=== PATIENT | male | born 1945 | race American Indian/Alaskan Native ===

== ENCOUNTER 2019-12-19 10:47 | Outpatient (CLI) | payer MEDICARE, OTHER ==
[2019-12-19 12:02] LABS: Alanine Aminotransferase 11 units/L (7-56); Albumin 3.8 g/dL (3.9-5); BUN/Creatinine Ratio 18; Blood Urea Nitrogen 14 mg/dL (9-20); Calcium 9.7 mg/dL (8.4-10.2); Hemolysis Index 0
== END 2019-12-19 10:48 | disposition home or self-care (01) ==
LOC: LAB 10:47
PROVIDERS: ATTEND Specialist
DX: R55 Syncope and collapse (principal); I72.9 Aneurysm of unspecified site; Z11.59 Encounter for screening for other viral diseases; Z79.899 Other long term (current) drug therapy
CPT/HCPCS: 36415; 80053; 82607; 83921; 84443; 86592

== ENCOUNTER 2021-03-11 07:39 | Day surgery (SDC) | payer MEDICARE, OTHER ==
[~2021-03-11 07:39] MED LIST: LACTATED RINGERS 1,000 ML IV SCH
[2021-03-11] MEDS ORDERED: HYDROmorphone 1 MG/1 ML INJ IV PRN (09:15)
[2021-03-11] MEDS ORDERED: ONDANSETRON 4 MG/2 ML INJ IV PRN (09:15)
--- NOTE | 2021-03-11 09:16 | Anesthesia Day of Surgery ---
Anesthesia Day of Surgery - Day of Surgery Patient Examined: Yes Patient H&P Reviewed: Yes Patient is NPO: Yes
[2021-03-11] MEDS ORDERED: ceFAZolin/Water 2 GM/20 ML 2 GM/20 ML SYRINGE IV ONE (09:21)
--- NOTE | 2021-03-11 09:28 | Anesthesia Consultation ---
Anesthesia Consult and Med Hx Date of service: 03/11/21 - Airway Anesthetic Teeth Evaluation: Dentures, Partials (Lower; missing teeth), Edentulous (Upper) ROM Head & Neck: Adequate Mental/Hyoid Distance: Adequate Mallampati Class: Class II Intubation Access Assessment: Good - Pre-Operative Health Status ASA Pre-Surgery Classification: ASA3 Proposed Anesthetic Plan: General - Pulmonary Hx Smoking: Yes (FORMER; quit three weeks ago) Hx Sleep Apnea: Yes - Cardiovascular System Hx Hypertension: Yes - Central Nervous System Hx Neuromuscular Disorder: Yes (Early Alzheimers; short-term memory deficit) CVA: Yes (Aneurysm; denies deficit) Hx Psychiatric Problems: No - Gastrointestinal Hx Gastroesophageal Reflux Disease: Yes (Occasional) - Endocrine Hx Renal Disease: No Hx Liver Disease: No 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
[2021-03-11] MEDS ORDERED: LACTATED RINGERS 1,000 ML IV SCH (09:30)
[2021-03-11] MEDS ORDERED: propofoL 200 MG/20 ML VIAL IV ONE (09:46)
[2021-03-11] MEDS ORDERED: HYDROmorphone 1 MG/1 ML INJ ONE (09:46)
[2021-03-11] MEDS ORDERED: LIDOCAINE MPF (2%) 20 MG/1 ML VIAL 5 ML ONE (09:46)
[2021-03-11] MEDS ORDERED: ceFAZolin/STERILE WATER 2 GM/20 ML SYRINGE IV NR (10:00)
[2021-03-11 10:04] LABS: Hematocrit 32.3 % (35.5-45.6); Mean Corpuscular HGB Conc 34 % (32-34); Mean Corpuscular Volume 79 fl (84-94); Platelet Count 179 K/mm3 (140-440); Red Blood Count 4.07 M/mm3 (3.65-5.03); Red Cell Distribution Width 16.8 % (13.2-15.2)
[2021-03-11 10:22] LABS: BUN/Creatinine Ratio 27; Blood Urea Nitrogen 24 mg/dL (9-20); Calcium 9.8 mg/dL (8.4-10.2); Hemolysis Index 8
[2021-03-11] MEDS ORDERED: PHENYLEPHRINE/NS 1,000 MCG/10 ML SYRINGE (OR USE) IV ONE (11:15)
[2021-03-11] MEDS ORDERED: SODIUM CHLORIDE 0.9% IRRIG SOLN 2000 ML IR ONE (11:15)
[2021-03-11] MEDS ORDERED: IOHEXOL 240 MG/ML 200 ML IV ONE (11:16)
[2021-03-11] MEDS ORDERED: ONDANSETRON 4 MG/2 ML INJ ONE (11:27)
[2021-03-11] MEDS ORDERED: KETOROLAC 30 MG/1 ML INJ ONE (11:27)
--- NOTE | 2021-03-11 11:39 | Short Stay Summary ---
Short Stay Documentation Date of service: 03/04/21 - History H&P: obtained from office - Allergies and Medications Current Medications: Allergies codeine Allergy (Verified 02/26/21 16:46) Vomiting morphine Allergy (Verified 02/26/21 16:46) Itching Home Medications Medication Instructions Recorded Confirmed Last Taken Type Aspirin [Adult Aspirin] 81 mg PO DAILY 02/26/21 03/11/21 03/07/21 09:00 History Simvastatin 80 mg PO HS 02/26/21 03/11/21 03/10/21 09:00 History hydrALAZINE [Apresoline] 50 mg PO DAILY 02/26/21 03/11/21 03/10/21 09:00 History Active Medications Hydromorphone HCl (Hydromorphone 1 Mg/1 Ml Inj) 0.25 mg IV Q10MIN PRN PRN Reason: Pain, Moderate (4-6) Stop: 03/11/21 20:00 Hydromorphone HCl (Hydromorphone 1 Mg/1 Ml Inj) 0.5 mg IV Q10MIN PRN PRN Reason: Pain , Severe (7-10) Stop: 03/11/21 20:00 Lactated Ringer's (Lactated Ringers) 1,000 mls @ 125 mls/hr IV DIRECT MARINA Ondansetron HCl (Ondansetron 4 Mg/2 Ml Inj) 4 mg IV ONCE PRN PRN Reason: Nausea And Vomiting Stop: 03/11/21 13:00 - Brief post op/procedure progress note Date of procedure: 03/11/21 Pre-op diagnosis: bph Post-op diagnosis: same Procedure: cysto, rpb, TUR bladder neck, greenlight laser of prostate Anesthesia: GETA Surgeon: MATILDA MENDEZ Estimated blood loss: minimal Pathology: list (bladder neck (prostate)) Specimen disposition: to lab Condition: stable - Hospital course Hospital course: ultram, macorbid, post op info on chart - Disposition Condition at discharge: Stable Disposition: - TO HOME OR SELFCARE Short Stay Discharge Plan Follow up with: ROSA ISELA TORRE MD [Primary Care Provider] - 7 Days
[2021-03-11] MEDS: HYDROmorphone 1 MG/1 ML INJ IV PRN ×2 (11:49→12:00)
[2021-03-11 12:38] VITALS: BP 138/78
--- NOTE | 2021-03-11 14:31 | Fluoroscopy Report ---
INTRAOPERATIVE FLUOROSCOPY: BILATERAL RETROGRADE UROGRAPHY INDICATION: BPH. TECHNIQUE: Intraoperative spot images were obtained during the procedure. FINDINGS: No hydronephrosis is seen. No extravasation or ureteral filling defects. Please see procedure note fo r details. Fluoroscopy Time: 0.4 minutes. Fluoroscopy Images: 11. Signer Name: Duke Dawn MD Signed: 03/11/2021 2:26 PM Workstation Name: [id number]
--- NOTE | 2021-03-11 19:20 | Post Anesthesia Evaluation ---
- Post Anesthesia Evaluation Patient Participated: Yes Airway Patent: Yes Stable Respiratory Function: No Nausea/Vomiting: Yes Temp > 96.8F: Yes Pain Manageable: Yes Adequeate Hydration: Yes Anesthesia Complications: No Block Receding Appropriately: Not Applicable Patient on Ventilator: No
--- NOTE | 2021-03-16 14:00 | Operative Report ---
DATE OF SURGERY: 03/11/2021 PREOPERATIVE DIAGNOSIS: Benign prostatic hypertrophy. POSTOPERATIVE DIAGNOSIS: Benign prostatic hypertrophy. PROCEDURE PERFORMED: Cystoscopy, transurethral resection of bladder neck, GreenLight laser ablation of the prostate. SURGEON: Dawood Howard M.D. ANESTHESIA: General. ESTIMATED BLOOD LOSS: Minimal. FLUIDS: Crystalloid. COMPLICATIONS: No complications. INDICATIONS: This patient is a 75-year-old gentleman, been followed in the office with BPH symptoms as well as erectile dysfunction. He underwent a recent urodynamic testing with a peak flow of 8 mL per second. Bladder capacity of 300 mL. Discussed options, the patient agreed to proceed with a GreenLight possible TURP. DESCRIPTION OF PROCEDURE: The patient was taken to the operative suite, placed in a supine position. After adequate general anesthesia, placed in the dorsal lithotomy position, prepped and draped in a sterile fashion. Pancystourethroscopy was performed with a 22-Icelandic Storz cystoscope. No urethral abnormalities. Prostate displayed moderate trilobar obstruction in his bladder. No tumors or stones were noted. He had mild diffuse trabeculation. Both ureteral orifices in normal position. Bilateral retrograde pyelograms were obtained with an 8-Icelandic [place] catheter and 8 mL of contrast. No filling defects or obstruction. Due to his median lobe, I used a 24-Icelandic resectoscope cutting and coag on 160 and 60 and did a TUR of that median lobe (bladder neck). Chips were evacuated out. Next, attention was taken to the lateral lobes using a MoXy fiber starting at 80 polanco. GreenLight laser ablation of the prostate was performed without difficulty. I did use some of the laser on the median lobe, but primarily lateral lobe obstruction and cautery was performed as well. Adequate hemostasis was achieved. A 24-Icelandic 3-way catheter with a plug was left indwelling. Rectal exam was benign. He was extubated and taken to the recovery room. TID: [id number] RECEIPT: [id number] TORY/JOSE
--- NOTE | 2021-03-17 02:06 | Operative Report ---
PREOPERATIVE DIAGNOSIS: Benign prostatic hypertrophy. POSTOPERATIVE DIAGNOSIS: Benign prostatic hypertrophy. PROCEDURE: Cystoscopy, bilateral retrograde pyelograms, transurethral resection of bladder neck, GreenLight laser ablation of the prostate. SURGEON: Dawood Howard MD ANESTHESIA: General. ESTIMATED BLOOD LOSS: Minimal. FLUIDS: Crystalloid. COMPLICATIONS: No complications. INDICATIONS: This is a 75-year-old gentleman known to my service for several years with worsening prostate obstructive symptoms. Risks, benefits, and complications were explained. The patient agreed to proceed with surgical intervention. His is also aware due to his short-term memory loss. DESCRIPTION OF PROCEDURE: The patient was taken to the operative suite, placed in a supine position. After adequate general anesthesia, placed in a dorsal lithotomy position, prepped and draped in a sterile fashion. Pancystourethroscopy was performed with a 22-[place] Storz cystoscope. No urethral abnormalities. His prostate displayed trilobar obstruction. Bilateral retrograde pyelograms were obtained with an 8-[place] Mac catheter and 8 mL of contrast. No filling defects or obstruction. He did have some diffuse trabeculation in the bladder. TUR resection of the median lobe was performed using a 24-[place] resectoscope with the cutting and coag on 160 and 60. Chips were evacuated out with the Aristotl evacuator. Next, using GreenLight laser with the MoXy fiber, starting at 80 polanco and going up to 120 polanco. Laser ablation of the lateral lobes was performed without difficulty. Nice channel could be appreciated. Urine was adequate. Hemostasis was achieved. A 22-[place] 3-way with a plug was placed. The patient tolerated the procedure well. Rectal exam was benign. He was extubated and taken to recovery room. He will go home on [facility]. JOB# [id number] [facility]
== END 2021-03-11 07:40 | disposition home or self-care (01) ==
LOC: OR 07:39
PROVIDERS: ATTEND Urology
DX: N40.0 Benign prostatic hyperplasia without lower urinary tract symptoms (principal); E78.00 Pure hypercholesterolemia, unspecified; I10 Essential (primary) hypertension; G47.30 Sleep apnea, unspecified; K21.9 Gastro-esophageal reflux disease without esophagitis; M19.90 Unspecified osteoarthritis, unspecified site; E11.9 Type 2 diabetes mellitus without complications; Z98.890 Other specified postprocedural states; Z88.5 Allergy status to narcotic agent; Z87.891 Personal history of nicotine dependence; Z79.899 Other long term (current) drug therapy; Z79.82 Long term (current) use of aspirin; Z86.73 Personal history of transient ischemic attack (TIA), and cerebral infarction without residual deficits
CPT/HCPCS: 36415; 52648; 74420; 80048; 82962; 85027; 88305; A4217; J0690; J1170; J1885; J2370; J2405; J2704; J7120; Q9967

== ENCOUNTER 2021-03-11 21:02 | Emergency (ER) | payer MEDICARE, OTHER | END 2021-03-11 21:40 | disposition left against medical advice (07) | LOC: ED 21:02 ==